=== PATIENT | male | born 1930 ===

== ENCOUNTER → 2017-11-18 | Emergency (ER) | payer OTHER ==
[~2017-11-18] VITALS: Ht 170.2 cm; Wt 77.1 kg
[~2017-11-18] MED LIST: INDERAL LA80 MG; KETO10TA2 PO
== END | disposition home or self-care (01) ==
LOC: ER 09:11 → CPU-OBS 09:37 → ER 09:37
DX: R07.89 Other chest pain (principal); M79.662 Pain in left lower leg; M79.661 Pain in right lower leg; R60.0 Localized edema